=== PATIENT | male | born 1990 | race African-American/Black ===

== ENCOUNTER 2023-02-22 10:11 | Emergency (ER) | payer OTHER, SELFPAY ==
--- NOTE | ~2023-02-22 | XR_ITS ---
EXAMINATION: XR RIBS, LEFT CLINICAL INFORMATION: Pain. Trauma. COMPARISON: None available. TECHNIQUE: 3 views of the left ribs and one view of the chest were obtained. FINDINGS: Lungs are clear. No consolidation, pneumothorax, or pleural effusion. The cardiomediastinal silhouette and pulmonary vasculature are normal. Osseous structures are unremarkable. Ribs are intact. No fractures are identified. XR/XR ribs LT min 3V w CXR1V IMPRESSION: Unremarkable examination.
[2023-02-22 10:29] VITALS: BP 137/77; PULSE 67; RESP 18; TEMP 37.3; O2SAT 99; BMI 20.1
--- NOTE | 2023-02-22 10:43 | ED_ITS ---
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 Reports pain worse with movement and deep breathing. Denies LOC, abdominal pain, nausea/vomiting, CP/SOB Onset (ago): day(s) Related Data Previous Rx's Medication Instructions Recorded acetaminophen 500 mg tablet 500 mg PO Q6H PRN fever or pain 02/22/23 (Tylenol Extra Strength) #14 tabs cyclobenzaprine 5 mg tablet 5 mg PO Q8H PRN pain (scale score 02/22/23 7-10) 5 days #14 tabs lidocaine 5 % topical patch 1 patch topical DAILY PRN pain #30 02/22/23 (Lidoderm) ea naproxen 500 mg tablet 500 mg PO BID PRN pain 10 days #20 02/22/23 tabs Allergies Allergy/AdvReac Type Severity Reaction Status Date / Time tramadol [TRAMADOL] Allergy Intermediate HIVES Unverified 07/30/20 19:31 Review of Systems Review of Systems: Constitutional: No Fever, No Chills ENT/Mouth: No Ear Pain, No Nasal Congestion, No sore throat, No Rhinorrhea, No Swallowing Difficulty Cardiovascular: + Chest Pain, No SOB Respiratory: No Cough, No Sputum, No Wheezing Gastrointestinal: No Nausea, No Vomiting, No Diarrhea, No Constipation, No Abdominal pain Genitourinary: No Dysuria, No Urinary Frequency, No Hematuria, No Urinary Incontinence/retention, No Flank Pain Musculoskeletal: No joint pain, No Myalgias, No Joint Swelling Skin: No Skin Lesions, No rash Neuro: No Weakness, No Numbness Yes all other systems are reviewed and are negative Constitutional: Constitutional: Reports as per [facility] Past Medical History Attestation statement: The following information was validated with the patient. Social History Social History Advance Directives: No Advance Directives Information Provided: Yes Physical Exam ED Vital Signs: Vital Signs - 24 hr 02/22/23 10:29 Temperature 99.2 F Pulse Rate 67 Respiratory Rate 18 Blood Pressure 137/77 Pulse Oximetry 99 Oxygen Delivery Method Room Air BMI result Body Mass Index 20.1 Const General: cooperative, healthy appearing and no acute distress Orientation/consciousness: patient oriented x3 Limitations: no limitations HENMT Head: Yes normal to inspection and Yes atraumatic Ears: hearing grossly normal bilaterally General nose exam: Normal external nose present Face and sinus: Yes normal facial exam Eyes General: appearance normal, both eyes and all related structures EOM: EOMs intact bilaterally Neck Neck: Yes normal visual inspection and Yes no meningeal signs Chest Other: + left anterior lateral lower rib tenderness to palpation reproducing subjective complaint. No erythema/ecchymosis. No flail chest. No crepitus Chest palpation & inspection: normal inspection of the chest, no crepitus and tenderness Resp Effort & Inspection: normal respiratory effort and no respiratory distress Auscultation: clear to auscultation bilaterally Cardio Rate: regular rate Heart sounds: S1 normal heart sound present and S2 normal heart sound present GI Inspection: Yes normal to inspection Palpation (GI): Soft to palpation, nontender, no guarding and not rigid General: Yes no CVA tenderness Back/Spine/Pelvis Other: No midline thoracic/lumbar spinous tenderness/step-off or deformity Back: no CVA tenderness Skin Rashes: no rashes Wounds: no wounds Neuro General: patient oriented x3, tone normal and no meningeal signs Gait exam (Neuro): Normal gait present Extrem General: Yes normal to inspection Course Course Course Narrative: XR ribs LT min 3V w CXR1V IMPRESSION: Unremarkable examination. Results discussed with patient including worrisome signs and symptoms and strict return precautions, and when to return to the emergency department. They verbalized understanding and feel safe for discharge at this time. Medications Administered Discontinued Medications Generic Name Dose Route Start Last Admin Trade Name Freq PRN Reason Stop Dose Admin Ketorolac Tromethamine 30 mg 02/22/23 11:10 02/22/23 11:26 Ketorolac Tromethamine 30 Mg/Ml Vial IM 02/22/23 11:11 30 mg ONCE ONE Administration Lidocaine 1 patch 02/22/23 11:10 02/22/23 11:25 Lidocaine 4 % Patch Adh..Patch TRANSDERMA 02/22/23 11:11 1 patch ONCE ONE Administration Protocol Medical Decision Making Medical Decision Making MDM Narrative: 32-year-old male with no significant past medical history presenting to the ED complaining of left-sided rib pain s/p being kicked a few times in the ribs by autistic child at work. On exam vital signs stable, NAD, nontoxic appearing, left anterior lateral rib tenderness reproducible, abdomen soft/nontender. Concern for rib fracture versus contusion. Lower suspicion for intra-abdominal bleeding/splenic laceration Plan: Rib series Please refer to course for remaining clinical decision making, interpretation of labs/imaging results, and discussions with consultants and/or family members. Differential Diagnosis Differential Diagnoses: The differential diagnosis associated with the presentation includes As above Admission/Observation Consideration of admission/observation: Escalation of care including admission/observation considered Lab Data [facility] Lab Attestation statement: I reviewed the patient's lab results. Radiology Impression Discussion of test interpretation with radiology: I have reviewed the radi ologist's reading. External Record Review External record reviewed: Inpatient record, Office record, Outpatient record, Prior outpatient labs, Prior outpatient radiology, Primary care record and Outside ED record Discharge Plan Discharge Clinical Impression: Rib contusion Patient Disposition: Home, Self-Care Instructions: Rib Contusion (ED) Additional Instructions: Your x-ray does not show a fracture, you could have a small hairline fracture which was not appreciated Continue to take deep breaths or you could develop pneumonia Flexeril is a muscle relaxer, take at night as it makes you drowsy, do not drive, drink alcohol, or operate machinery while taking it Naproxen as an anti-inflammatory / pain medication, take with food Lidoderm patches are numbing patches, apply to painful area In addition take Tylenol at home If symptoms persist or worsen, pain becomes unbearable, you developed urinary retention or incontinence, or weakness return to the ED Prescriptions: New acetaminophen [Tylenol Extra Strength] 500 mg tablet 500 mg PO Q6H PRN (Reason: fever or pain) Qty: 14 0RF lidocaine [Lidoderm] 5 % adhesive patch,medicated 1 patch topical DAILY MDD remove after 12 hours PRN (Reason: pain) Qty: 30 0RF Rx Instructions: leave on most painful area for up to 12 hrs naproxen 500 mg tablet 500 mg PO BID PRN (Reason: pain) 10 Days Qty: 20 0RF cyclobenzaprine 5 mg tablet 5 mg PO Q8H PRN (Reason: pain (scale score 7-10)) 5 Days Qty: 14 0RF Referrals: Denny Yu MD [Primary Care Provider] - 1 week Stand Alone Forms: Work/School Release Interventions: ED Discharge Assessment Last Done: 02/22/23 12:47 Discharge Date/Time: 02/22/23 12:48
--- OUTSIDE RECORDS SUMMARY | 2023-02-22 11:02 | XMS_ITS | Continuity of Care Document ---
Author Name Unknown Organization [facility] Jose Luis lt Address [address] [place] [address]- Care Team Providers Care Slubber Machine Operator Name Role Phone Aimee CANNON, Denny Waters Primary Care Physician En[place] [facility] [place] Date(s): 05/26/20 - 06/25/20 [facility] Adult [address] [place] [address]- [place] States Allergies, Adverse Reactions, Alerts Substance Reaction Severity Status Seafood 1 Active Strawberries 2 Active Onions 3, 4 Active traMADol 5 Active 1hot flash, sweaty 2hives, vomiting 3itchy throat 4hot flash, sweaty 5syncope Immunizations Given and Recorded Vaccine Date Status Refusal Reason influenza virus vaccine, inactivated 1 08/22/19 Gi kylie Hepatitis A Adult Vaccine 2 12/06/18 Given tetanus/diphtheria/pertussis, acel(Tdap) 3 07/17/13 Recorded 1Result Comment: [facility] 58152-244-03 2Result Comment: [12/06/2018] [facility] [id number] 3Result Comment: [12/04/2017] [facility] Medications albuterol CFC free 90 mcg/inh inhalation aerosol Refills 0, Maintenance, 10/04/19 8:06:23 EST Start Date: 10/04/19 Status: Ordered amphetamine-dextroamphetamine 10 mg oral capsule, extended release TAKE 1 CAPSULE BY MOUTH EVERY MORNING Start Date: 10/04/19 Status: Ordered baclofen 10 mg oral tablet 10 mg, 1, tablet, By Mouth, 3 times a day, PRN, # 15 tablet, Refills 1, Tot. Refills 1, Maintenance, muscle spasm, 06/03/20 11:00:00 EDT, Route to Pharmacy Electronically, [facility]/pharmacy #[id number], 165.9, cm, 06/03/20 10:24:00 EDT, Height Start Date: 06/03/20 Status: Ordered epinephrine 0.3 mg injectable solution USE DIRECTED FOR ANAPHYLAXIS THEN CALL 911 Start Date: 10/04/19 Status: Ordered levocetirizine 5 mg oral tablet 0 Refills, Maintenance, 10/04/19 8:06:32 EST Start Date: 10/04/19 Status: Ordered Neuropsych referral Neuropsych referral, See Instructions, # 1 each, Refills 0, Tot. 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 FAX [phone] [facility], 04/04/19 8:... Start Date: 04/04/19 Status: Ordered Neuropsych referral Neuropsych referral, See Instructions, # 1 each, Refills 0, Tot. Refills 0, Maintenance, adult evaluate and treat, 04/02/19 9:22:48 EDT, Compound Start Date: 04/02/19 Status: Ordered Proventil HFA 90 mcg/inh inhalation aerosol with adapter 1, puffs, Inhalation, 4 times a day, PRN, # 8.5 Gm, Refills 5, Tot. Refills 5, Maintenance, 02/20/20 10:13:00 EDT, Aerosol, Route to Pharmacy Electronically, [id number], [facility]/pharmacy #[id number], 165.9, cm, 12/24/19 10:56:00 EST, H... Start Date: 02/20/20 Status: Ordered Problem List Condition Effective Dates Status Health Status Inform ant Allergic rhinitis(Confirmed) Active Asthma(Confirmed) Active Conversion disorder(Confirmed) Active Social History Social History Type Response Smoking Status Former smoker; Other : quit in 2012; entered on: 12/04/17 Sex
--- OUTSIDE RECORDS SUMMARY | 2023-02-22 11:02 | XMS_ITS | Continuity of Care Document ---
Author Name Unknown Organization [facility] Jose Luis Address [address] [place] [address]- Care Team Providers Care Chemist Water Purification Name Role Phone Denny Yu MD Primary Care Physician [phone] Encounter [facility] Date(s): 01/29/20 - 02/05/20 [facility] Adult [address] [place] [address] Encounter Diagnosis Fever(Discharge Diagnosis) - 01/29/20 Attending Physician: Joseph JUDD, Yvette Campuzano Referring Physician: Denny Yu MD Allergies, Adverse Reactions, Alerts Substance Reaction Severity Status Seafood 1 Active Strawberries 2 Active Onions 3, 4 Active traMADol 5 Active 1hot flash, sweaty 2hives, vomiting 3itchy throat 4hot flash, sweaty 5syncope Immunizations Given and Recorded Vaccine Date Status Refusal Reason influenza virus vaccine, inactivated 1 08/22/19 Gi kylie Hepatitis A Adult Vaccine 2 12/06/18 Given tetanus/diphtheria/pertussis, acel(Tdap) 3 07/17/13 Recorded 1Result Comment: [facility][NOTE 3] [id number] 2Result Comment: [12/06/2018] [facility][NOTE 3] [id number] 3Result Comment: [12/04/2017] [facility] Medications albuterol CFC free 90 mcg/inh inhalation aerosol Refills 0, Maintenance, 10/04/19 8:06:23 EST Start Date: 10/04/19 Status: Ordered amphetamine-dextroamphetamine 10 mg oral capsule, extended release TAKE 1 CAPSULE BY MOUTH EVERY MORNING Start Date: 10/04/19 Status: Ordered baclofen 10 mg oral tablet 10 mg, 1, tablet, By Mouth, 3 times a day, PRN, # 15 tablet, Refills 0, Tot. Refills 0, Maintenance, muscle spasm, 05/29/18 18:23:10 EDT, Route to Pharmacy Electronically, [id number], [facility]/pharmacy #[id number] Start Date: 05/29/18 Status: Ordered epinephrine 0.3 mg injectable solution [...] child, worsening over past few years. FAX [phone] [facility], 04/04/19 8:... Start Date: 04/04/19 Status: Ordered Neuropsych referral Neuropsych referral, See Instructions, # 1 each, Refills 0, Tot. Refills 0, Maintenance, adult evaluate and treat, 04/02/19 9:22:48 EDT, Compound Start Date: 04/02/19 Status: Ordered Problem List Condition Effective Dates Status Health Status Inform ant Allergic rhinitis(Confirmed) Active Asthma(Confirmed) Active Conversion disorder(Confirmed) Active Diagnosis Diagnosis Type Effective Dates Health Status [facility] Informant Fever Discharge Diagnosis 01/29/20 Social History Social History Type Response Smoking Status Former smoker; Other : quit in 2012; entered on: 12/04/17 Sex
--- OUTSIDE RECORDS SUMMARY | 2023-02-22 11:02 | XMS_ITS | Continuity of Care Document ---
Author Name Unknown Organization [facility] Jose Luis lt Address [address] [place] [address]- Care Team Providers Care Trimming Operator Name Role Phone Aimee CANNON, Denny Waters Primary Care Physician [phone] [place] [facility] [place] [facility] [place]03[place] 07/03/20 [facility] Adult [address] [place] [address]- [facility] Attending Physician: Admtr, Shannen Admitting Physician: AdmtrShannen Referring Physician: Admtr, Ar8 Allergies, Adverse Reactions, Alerts Substance Reaction Severity Status Seafood 1 Active Strawberries 2 Active Onions 3, 4 Active traMADol 5 Active 1hot flash, sweaty 2hives, vomiting 3itchy throat 4hot flash, sweaty 5syncope Immunizations Given and Recorded Vaccine Date Status Refusal Reason influenza virus vaccine, inactivated 1 08/22/19 Gi kylie Hepatitis A Adult Vaccine 2 12/06/18 Given tetanus/diphtheria/pertussis, acel(Tdap) 3 07/17/13 Recorded 1Result Comment: [facility] [id number] 2Result Comment: [12/06/2018] [facility] [id number] 3Result Comment: [12/04/2017] [facility] Medications albuterol CFC free 90 mcg/inh [...] 06/03/20 11:00:00 EDT, Route to Pharmacy Electronically, [facility]/pharmacy #[id number], 165.9, cm, 06/03/20 10:24:00 EDT, Height [...] child, worsening over past few years. FAX [phone] [facility], 04/04/19 8:... Start Date: 04/04/19 [...] 10:13:00 EDT, Aerosol, Route to Pharmacy Electronically, [id number], [facility]/pharmacy #[id number], 165.9, cm, 12/24/19 10:56:00 EST, H... Start Date: 02/20/20 Status: Ordered Problem List Condition Effective Dates Status Health Status Inform ant Allergic rhinitis(Confirmed) Active Asthma(Confirmed) Active Conversion disorder(Confirmed) Active Social History Social History Type Response Smoking Status Former smoker; Other : quit in 2012; entered on: 12/04/17 Sex
--- OUTSIDE RECORDS SUMMARY | 2023-02-22 11:02 | XMS_ITS | Continuity of Care Document ---
Author Name Unknown Organization [facility] ter Address [address] [place] [address]- Care Team Providers Care Electric Motor Controls Assembler Name Role Phone Denny Yu MD Primary Care Physician [phone] [id number] Date[facility] - 01/01/[address] [address]- [facility] Attending Physician: Denny Yu MD Allergies, Adverse Reactions, [...] tetanus/diphtheria/pertussis, acel(Tdap) 3 07/17/13 Recorded 1Result Comment: [facility] [id number] 2Result Comment: [12/06/2018] [facility] [id number] 3Result Comment: [12/04/2017] [facility] Medications albuterol CFC free 90 mcg/inh inhalation [...] 05/29/18 18:23:10 EDT, Route to Pharmacy Electronically, [id number], [facility]/pharmacy #[id number] Start Date: 05/29/18 Status: Ordered epinephrine [...] child, worsening over past few years. FAX [phone] [facility], 04/04/19 8:... Start Date: 04/04/19 Status: [...]
--- OUTSIDE RECORDS SUMMARY | 2023-02-22 11:02 | XMS_ITS | Continuity of Care Document ---
Author Name Unknown Organization [facility] Jose Luis Address [address] [place] [address]- Care Team Providers Care Program Clinician Name Role Phone Aimee CANNON, Denny Waters Primary Care Physician [phone] Encounter [facility] Date(s): 03/25/22 - 04/24/22 [facility] Adult [address] [place] [address]- Attending Physician: Admtr, Ar8 Admitting Physician: Admtr, Ar8 Referring Physician: Admtr, Ar8 Allergies, Adverse Reactions, Alerts Substance Reaction Severity Status Seafood 1 Active Strawberries 2 Active Onions 3, 4 Active traMADol 5 Active 1hot flash, sweaty 2hives, vomiting 3itchy throat 4hot flash, sweaty 5syncope Immunizations Given and Recorded Vaccine Date Status Refusal Reason SARS-CoV-2 mRNA ([id number]-wuqj-euntc) vax 01/08/22 Recorded SARS-CoV-2 (COVID-19) mRNA BNT-162b2 vac 05/26/21 Recorded SARS-CoV-2 (COVID-19) mRNA BNT-162b2 vac 05/05/21 Recorded influenza virus vaccine, inactivated 1 08/22/19 Gi kylie influenza virus vaccine, inactivated 11/20/18 Ivan rded influenza virus vaccine, inactivated 07/24/14 Ivan rded influenza virus vaccine, inactivated 10/19/12 Ivan rded Hepatitis A Adult Vaccine 2 12/06/18 Given tetanus/diphtheria/pertussis, acel(Tdap) 07/24/14 Recorded tetanus/diphtheria/pertussis, acel(Tdap) 3 07/17/13 Recorded Meningococcal Conjugate Vaccine 10/25/05 Recorded 1Result Comment: [facility] [id number] 2Result Comment: [12/06/2018] [facility] [id number] 3Result Comment: [12/04/2017] [facility] Medications amphetamine-dextroamphetamine 10 mg oral capsule, extended release TAKE 1 CAPSULE BY MOUTH EVERY MORNING Start Date: 10/04/19 Status: Ordered baclofen 10 mg oral tablet 1, tablet, By Mouth, 3 times a day, PRN, # 15 tablet, Refills 1, Tot. Refills 0, Maintenance, NEEDED FOR MUSCLE SPASM, 04/01/21 12:29:00 EDT, Route to Pharmacy Electronically, [id number], 165.9, cm, 06/03/20 10:24:00 EDT, Height Start Date: 04/01/21 Status: Ordered epinephrine 0.3 mg injectable solution USE DIRECTED FOR ANAPHYLAXIS THEN CALL 911 Start Date: 10/04/19 Status: Ordered levocetirizine 5 mg oral tablet 0 Refills, Maintenance, 10/04/19 8:06:32 EST Start Date: 10/04/19 Status: Ordered Neuropsych referral Neuropsych referral, See Instructions, # 1 each, Refills 0, Tot. Refills 0, Maintenance, adult evaluate and treat, 04/02/19 9:22:48 EDT, Compound Start Date: 04/02/19 Status: Ordered Neuropsych referral Neuropsych referral, See Instructions, # 1 each, Refills 0, Tot. 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 FAX [phone] [facility], 04/04/19 8:... Start Date: 04/04/19 Status: Ordered ProAir HFA 90 mcg/inh inhalation aerosol 1 puffs, Inhalation, 4 times a day, PRN NEEDED FOR WHEEZING, # 18 Unknown, 5 Refills, Maintenance, 04/01/21 12:29:00 EDT, [id number], 25, INHALE 1 PUFF BY MOUTH 4 TIMES A DAY NEEDED FOR WHEEZING, 165.9, cm, 06/03/20 10:24:00 EDT, Height Start Date: 04/01/21 Status: Ordered Problem List Condition Effective Dates Status Health Status Inform ant Allergic rhinitis(Confirmed) Active Asthma(Confirmed) Active Conversion disorder(Confirmed) Active Social History Social History Type Response Smoking Status Former smoker; Other : quit in 2012; entered on: 12/04/17 Sex
--- OUTSIDE RECORDS SUMMARY | 2023-02-22 11:02 | XMS_ITS | Continuity of Care Document ---
Author Name Unknown Organization [facility] Jose Luis lt Address [address] [place] [address]- Care Team Providers Care Human Resources Project Manager Name Role Phone Aimee CANNON, Denny Waters Primary Care Physician [phone] Encounter [facility] [place] Date(s): 03/15/22 - 04/14/22 [facility] Adult [address] [place] [address]- Allergies, Adverse Reactions, Alerts Substance Reaction Severity Status Seafood 1 Active Strawberries 2 Active Onions 3, 4 Active traMADol 5 Active 1hot flash, sweaty 2hives, vomiting 3itchy throat 4hot flash, sweaty 5syncope Immunizations Given and Recorded Vaccine Date Status Refusal Reason SARS-CoV-2 mRNA (rjfxldd-aawv-rdhar) vax 01/08/22 Recorded SARS-CoV-2 (COVID-19) mRNA BNT-162b2 [...] Meningococcal Conjugate Vaccine 10/25/05 Recorded 1Result Comment: [facility] [phone] 2Result Comment: [12/06/2018] [facility] [id number] 3Result Comment: [12/04/2017] [facility] Medications amphetamine-dextroamphetamine 10 mg oral capsule, extended release TAKE 1 CAPSULE BY MOUTH EVERY MORNING Start Date: 10/04/19 Status: Ordered baclofen 10 mg oral tablet 1, tablet, By Mouth, 3 times a day, PRN, # 15 tablet, Refills 1, Tot. Refills 0, Maintenance, NEEDED FOR MUSCLE SPASM, 04/01/21 12:29:00 EDT, Route to Pharmacy Electronically, [id number], 165.9, cm, 06/03/20 10:24:00 EDT, Height Start [...] child, worsening over past few years. FAX [phone] [facility], 04/04/19 8:... Start Date: 04/04/19 Status: Ordered ProAir HFA 90 mcg/inh inhalation aerosol 1 puffs, Inhalation, 4 times a day, PRN NEEDED FOR WHEEZING, # 18 Unknown, 5 Refills, Maintenance, 04/01/21 12:29:00 EDT, [facility] STORE [address], 25, INHALE 1 PUFF BY MOUTH 4 [...]
--- OUTSIDE RECORDS SUMMARY | 2023-02-22 11:02 | XMS_ITS | Continuity of Care Document ---
Author Name Unknown Organization [facility] Address [address] [place] [address]- Care Team Providers Care Method Consultant Name Role Phone Aimee CANNON, Denny Waters Primary Care Physician [phone] Encounter [facility] Date(s): 11/18/20 - 12/18/20 [facility] [address] [place] [address]- Allergies, Adverse Reactions, Alerts Substance Reaction Severity Status Seafood 1 Active Strawberries 2 Active Onions 3, 4 Active traMADol 5 Active 1hot flash, sweaty 2hives, vomiting 3itchy throat 4hot flash, sweaty 5syncope Immunizations Given and Recorded Vaccine Date Status Refusal Reason influenza virus vaccine, inactivated 1 08/22/19 Gi kylie Hepatitis A Adult Vaccine 2 12/06/18 Given tetanus/diphtheria/pertussis, acel(Tdap) 3 07/17/13 Recorded 1Result Comment: [facility] 33418-579-47 2Result Comment: [12/06/2018] [facility] 62604-669-26 3Result Comment: [12/04/2017] [facility] Medications albuterol CFC free 90 mcg/inh inhalation [...] 06/03/20 11:00:00 EDT, Route to Pharmacy Electronically, [facility]/pharmacy #2339, 165.9, cm, 06/03/20 10:24:00 EDT, [...] child, worsening over past few years. FAX [phone] [facility], 04/04/19 8:... Start Date: 04/04/19 Status: Ordered Proventil HFA 90 mcg/inh inhalation aerosol with adapter 1, puffs, Inhalation, 4 times a day, PRN, # 8.5 Gm, Refills 5, Tot. Refills 5, Maintenance, 02/20/20 10:13:00 EDT, Aerosol, Route to Pharmacy Electronically, [id number], [facility]/pharmacy #2339, 165.9, cm, 12/24/19 10:56:00 EST, H... Start Date: 02/20/20 Status: Ordered Problem List Condition Effective Dates Status Health Status Inform ant Allergic rhinitis(Confirmed) Active Asthma(Confirmed) Active Conversion disorder(Confirmed) Active Social History Social History Type Response Smoking Status Former smoker; Other : quit in 2012; entered on: 12/04/17 Sex
--- OUTSIDE RECORDS SUMMARY | 2023-02-22 11:02 | XMS_ITS | Continuity of Care Document ---
Author Name Unknown Organization [facility] Jose Luis lt Address [address] [place] [address]- Care Team Providers Care Corporate Accounting Manager Name Role Phone Denny Yu MD Primary Care Physician En[place] [facility] Date(s): 06/03/20 - 06/10/20 [facility] Adult [address] [place] [address]- [place] Attending Physician: Denny Yu MD Allergies, Adverse [...] tetanus/diphtheria/pertussis, acel(Tdap) 3 07/17/13 Recorded 1Result Comment: [facility] 13072-375-51 2Result Comment: [12/06/2018] [facility] 44703-576-73 3Result Comment: [12/04/2017] [facility] Medications albuterol CFC free 90 mcg/inh [...] child, worsening over past few years. FAX [phone] [facility], 04/04/19 8:... Start Date: 04/04/19 Status: [...] 10:13:00 EDT, Aerosol, Route to Pharmacy Electronically, [id number], [facility], 165.9, cm, 12/24/19 10:56:00 EST, H... Start Date: 02/20/20 Status: Ordered Problem List Condition Effective Dates Status Health Status Inform ant Allergic rhinitis(Confirmed) Active Asthma(Confirmed) Active Conversion disorder(Confirmed) Active Vital Signs Most recent to oldest [Reference Range]: 1 Height 165.9 cm (06/03/20 10:24 AM) Social History Social History Type Response Smoking Status Former smoker; Other : quit in 2012; entered on: 12/04/17 Sex
--- OUTSIDE RECORDS SUMMARY | 2023-02-22 11:02 | XMS_ITS | Continuity of Care Document ---
Author Name Unknown Organization [facility] Jose Luis Address [address] [place] [address]- Care Team Providers Care Engraver Apprentice Decorative Name Role Phone Denny Yu MD Primary Care Physician [place] [facility] Date[place] 03/22/22 - 04/24/22 [facility] Adult [address] [place] [address]- Attending Physician: Denny Yu MD Allergies, Adverse Reactions, Alerts Substance Reaction Severity Status Seafood 1 Active Strawberries 2 Active Onions 3, 4 Active traMADol 5 Active 1hot flash, sweaty 2hives, vomiting 3itchy throat 4hot flash, sweaty 5syncope Immunizations Given and Recorded Vaccine Date Status Refusal Reason SARS-CoV-2 mRNA (aomfaps-xaxj-edegc) vax 01/08/22 Recorded SARS-CoV-2 (COVID-19) mRNA BNT-162b2 [...] Meningococcal Conjugate Vaccine 10/25/05 Recorded 1Result Comment: [facility] 41766-287-28 2Result Comment: [12/06/2018] [facility] 79593-284-41 3Result Comment: [12/04/2017] [facility] Medications amphetamine-dextroamphetamine 10 mg oral capsule, extended release TAKE 1 CAPSULE BY MOUTH EVERY MORNING Start Date: 10/04/19 Status: Ordered baclofen 10 mg oral tablet 1, tablet, By Mouth, 3 times a day, PRN, # 15 tablet, Refills 1, Tot. Refills 0, Maintenance, NEEDED FOR MUSCLE SPASM, 04/01/21 12:29:00 EDT, Route to Pharmacy Electronically, [facility], 165.9, cm, 06/03/20 10:24:00 EDT, Height Start [...] child, worsening over past few years. FAX [phone] [facility], 04/04/19 8:... Start Date: 04/04/19 Status: Ordered ProAir HFA 90 mcg/inh inhalation aerosol 1 puffs, Inhalation, 4 times a day, PRN NEEDED FOR WHEEZING, # 18 Unknown, 5 Refills, Maintenance, 04/01/21 12:29:00 EDT, [facility], 25, INHALE 1 PUFF BY MOUTH 4 [...]
--- OUTSIDE RECORDS SUMMARY | 2023-02-22 11:02 | XMS_ITS | Continuity of Care Document ---
Author Name Unknown Organization [facility] Jose Luis Address [address] [place] [address]- Care Team Providers Care Cryptographic Machine Operator Name Role Phone Denny Yu MD Primary Care Physician [phone] Encounter [facility] Date(s): 02/17/20 - 03/18/20 [facility] Adult [address] [place] [address]- [facility] Attending Physician: Denny Yu MD Allergies, Adverse [...] tetanus/diphtheria/pertussis, acel(Tdap) 3 07/17/13 Recorded 1Result Comment: [facility] 15968-630-30 2Result Comment: [12/06/2018] [facility] 92599-476-29 3Result Comment: [12/04/2017] [facility] Medications albuterol CFC free 90 [...] 05/29/18 18:23:10 EDT, Route to Pharmacy Electronically, [id number], [facility]/pharmacy #2339 Start Date: 05/29/18 Status: [...] child, worsening over past few years. FAX [phone] [facility], 04/04/19 8:... [...] 10:13:00 EDT, Aerosol, Route to Pharmacy Electronically, [id number], [facility], 165.9, cm, 12/24/19 10:56:00 EST, H... Start Date: 02/20/20 Status: Ordered Problem List Condition Effective Dates Status Health Status Inform ant Allergic rhinitis(Confirmed) Active Asthma(Confirmed) Active Conversion disorder(Confirmed) Active Social History Social History Type Response Smoking Status Former smoker; Other : quit in 2012; entered on: 12/04/17 Sex
--- OUTSIDE RECORDS SUMMARY | 2023-02-22 11:02 | XMS_ITS | Continuity of Care Document ---
Author Name Unknown Organization [facility] Jose Luis lt Address [address] [place] [address]- Care Team Providers Care Honing Machine Operator Name Role Phone Aimee CANNON, Denny Waters Primary Care Physician [phone] Encounter [facility] Date(s): 01/29/20 - 02/08/20 [facility] Adult [address] [place] [address]- [facility] Attending Physician: Admtr, Ar8 Admitting Physician: Admtr, [...] tetanus/diphtheria/pertussis, acel(Tdap) 3 07/17/13 Recorded 1Result Comment: [facility] 92588-690-77 2Result Comment: [12/06/2018] [facility] 85347-900-41 3Result Comment: [12/04/2017] [facility] Medications albuterol CFC free 90 mcg/inh [...] 05/29/18 18:23:10 EDT, Route to Pharmacy Electronically, [id number], [facility]/pharmacy #2339 Start Date: 05/29/18 Status: [...] child, worsening over past few years. FAX [phone] [facility], 04/04/19 8:... Start Date: 04/04/19 Status: Ordered [...]
--- OUTSIDE RECORDS SUMMARY | 2023-02-22 11:02 | XMS_ITS | Continuity of Care Document ---
Author Name Unknown Organization [facility] Jose Luis lt Address [address] [place] [address]- Care Team Providers Care Padder Cushion Name Role Phone Aimee CANNON, Denny Waters Primary Care Physician Encounter [facility] Date(s): 05/26/20 - 06/25/20 [facility] Adult [address] [place] [address]- [place] Allergies, Adverse Reactions, Alerts Substance Reaction [...] tetanus/diphtheria/pertussis, acel(Tdap) 3 07/17/13 Recorded 1Result Comment: [facility] 80563-489-31 2Result Comment: [12/06/2018] [facility] 46182-154-79 3Result Comment: [12/04/2017] [facility] Medications albuterol CFC free 90 mcg/inh [...] 06/03/20 11:00:00 EDT, Route to Pharmacy Electronically, [facility]/pharmacy #2339, 165.9, cm, 07/22/20 10:24:00 EDT, Height Start Date: 06/03/20 Status: [...] child, worsening over past few years. FAX [phone] [facility], 04/04/19 8:... Start Date: 04/04/19 Status: [...] 10:13:00 EDT, Aerosol, Route to Pharmacy Electronically, [id number], [facility]/pharmacy #2339, 165.9, cm, 12/24/19 10:56:00 EST, H... Start Date: 02/20/20 Status: Ordered Problem List Condition Effective Dates Status Health Status Inform ant Allergic rhinitis(Confirmed) Active Asthma(Confirmed) Active Conversion disorder(Confirmed) Active Social History Social History Type Response Smoking Status Former smoker; Other : quit in 2012; entered on: 12/04/17 Sex
--- OUTSIDE RECORDS SUMMARY | 2023-02-22 11:02 | XMS_ITS | Continuity of Care Document ---
Author Name Unknown Organization [facility] Jose Luis lt Address [address] [place] [address]- Care Team Providers Care Sld Inclusion Teacher Name Role Phone Aimee CANNON, Denny Waters Primary Care Physician [phone] En[place] [facility] Date(s): 06/03/20 - 07/03/20 [facility] Adult [address] [place] [address]- [place] Allergies, Adverse Reactions, Alerts Substance Reaction [...] acel(Tdap) 3 07/17/13 Recorded 1Result Comment: [facility] 55200-472-21 2Result Comment: [12/06/2018] [facility] 31746-825-97 3Result Comment: [12/04/2017] [facility] Medications albuterol CFC free 90 mcg/inh [...] 06/03/20 11:00:00 EDT, Route to Pharmacy Electronically, [facility]/pharmacy #2339, 165.9, cm, 07/22/20 10:24:00 EDT, Height [...] child, worsening over past few years. FAX [phone] [facility], 04/04/19 8:... Start Date: 04/04/19 Status: [...] 10:13:00 EDT, Aerosol, Route to Pharmacy Electronically, [id number], [facility]/pharmacy #2339, 165.9, cm, 12/24/19 10:56:00 EST, H... Start Date: 02/20/20 Status: Ordered Problem List Condition Effective Dates Status Health Status Inform ant Allergic rhinitis(Confirmed) Active Asthma(Confirmed) Active Conversion disorder(Confirmed) Active Social History Social History Type Response Smoking Status Former smoker; Other : quit in 2012; entered on: 12/04/17 Sex
--- OUTSIDE RECORDS SUMMARY | 2023-02-22 11:02 | XMS_ITS | Continuity of Care Document ---
Author Name Unknown Organization [facility] Jose Luis Address [address] [place] [address]- Care Team Providers Care Integrated Circuits Inspector Name Role Phone Denny Yu MD Primary Care Physician En[place] [facility] Date(s): 04/03/20 - 04/10/20 [facility] Adult [address] [place] [address]- [facility] Attending Physician: Denny Yu MD [...] tetanus/diphtheria/pertussis, acel(Tdap) 3 07/17/13 Recorded 1Result Comment: [facility] 41051-381-59 2Result Comment: [12/06/2018] [facility] 17982-919-09 3Result Comment: [12/04/2017] [facility] Medications albuterol CFC free 90 [...] 05/29/18 18:23:10 EDT, Route to Pharmacy Electronically, [id number], [facility] Start Date: 05/29/18 Status: Ordered epinephrine [...] child, worsening over past few years. FAX [phone] [facility], 04/04/19 8:... Start Date: 04/04/19 [...] 10:13:00 EDT, Aerosol, Route to Pharmacy Electronically, [id number], [facility], 165.9, cm, 12/24/19 10:56:00 EST, H... Start Date: 02/20/20 Status: Ordered Problem List Condition Effective Dates Status Health Status Inform ant Allergic rhinitis(Confirmed) Active Asthma(Confirmed) Active Conversion disorder(Confirmed) Active Vital Signs Most recent to oldest [Reference Range]: 1 Height 165.9 cm (04/03/20 9:22 AM) Weight 55.0 kg (04/03/20 9:22 AM) Oxygen Saturation [94-100 %] 98 % (04/03/20 9:22 AM) Pulse Rate [55-90 bpm] 73 bpm (04/03/20 9:22 AM) Body Mass Index [18.5-24.99] 19.98 (04/03/20 9:22 AM) Blood Pressure [90-138/55-84 mm Hg] 110/ 70mm Hg (04/03/20 9:22 AM) Temperature [96.8-100.4 DegF] 98.5 DegF (04/03/20 9:22 AM) Mode of Delivery (Oxygen) Room air (04/03/20 9:22 AM) Blood pressure sites Arm, right (04/03/20 9:22 AM) Temperature Route Oral (04/03/20 9:22 AM) Weight Obtained Via Standing scale (04/03/20 9:22 AM) Social History Social History Type Response Smoking Status Former smoker; Other : quit in 2012; entered on: 12/04/17 Sex
--- OUTSIDE RECORDS SUMMARY | 2023-02-22 11:02 | XMS_ITS | Continuity of Care Document ---
Author Name Unknown Organization [facility] Jose Luis lt Address [address] [place] [address]- Care Team Providers Care Scroll Assembler Name Role Phone Aimee CANNON, Denny Waters Primary Care Physician [facility]counter [facility] Date(s): 06/02/20 - 07/02/20 [facility] Adult [address] [place] [address]- [place] Allergies, Adverse Reactions, Alerts Substance Reaction [...] 07/17/13 Recorded 1Result Comment: [facility] 80358-837-88 2Result Comment: [12/06/2018] [facility] 65072-358-15 3Result Comment: [12/04/2017] [facility] Medications albuterol CFC free 90 mcg/inh [...] 06/03/20 11:00:00 EDT, Route to Pharmacy Electronically, [facility]/pharmacy #2339, 165.9, cm, 06/03/20 10:24:00 EDT, [...] child, worsening over past few years. FAX [phone] [facility], 04/04/19 [...] 10:13:00 EDT, Aerosol, Route to Pharmacy Electronically, [id number], [facility]/pharmacy #2339, 165.9, cm, 12/24/19 10:56:00 EST, H... Start Date: 02/20/20 Status: Ordered Problem List Condition Effective Dates Status Health Status Inform ant Allergic rhinitis(Confirmed) Active Asthma(Confirmed) Active Conversion disorder(Confirmed) Active Social History Social History Type Response Smoking Status Former smoker; Other : quit in 2012; entered on: 12/04/17 Sex
--- OUTSIDE RECORDS SUMMARY | 2023-02-22 11:02 | XMS_ITS | Continuity of Care Document ---
Author Name Unknown Organization [facility] Jose Luis lt Address [address] [place] [address]- Care Team Providers Care Hot Patcher Name Role Phone Aimee CANNON, Denny Waters Primary Care Physician Encounter [facility] Date(s): 03/22/22 - 04/21/22 [facility] Adult [address] [place] [address]- Allergies, Adverse Reactions, Alerts Substance Reaction Severity Status Seafood 1 Active Strawberries 2 Active Onions 3, 4 Active traMADol 5 Active 1hot flash, sweaty 2hives, vomiting 3itchy throat 4hot flash, sweaty 5syncope Immunizations Given and Recorded Vaccine Date Status Refusal Reason SARS-CoV-2 mRNA (nudklis-hyxr-sijwb) vax 01/08/22 Recorded SARS-CoV-2 (COVID-19) mRNA BNT-162b2 [...] Meningococcal Conjugate Vaccine 10/25/05 Recorded 1Result Comment: [facility] 26166-081-15 2Result Comment: [12/06/2018] [facility] 30796-031-75 3Result Comment: [12/04/2017] [facility] Medications amphetamine-dextroamphetamine 10 mg oral capsule, extended release TAKE 1 CAPSULE BY MOUTH EVERY MORNING Start Date: 10/04/19 Status: Ordered baclofen 10 mg oral tablet 1, tablet, By Mouth, 3 times a day, PRN, # 15 tablet, Refills 1, Tot. Refills 0, Maintenance, NEEDED FOR MUSCLE SPASM, 04/01/21 12:29:00 EDT, Route to Pharmacy Electronically, [facility], 165.9, cm, 06/03/20 10:24:00 EDT, Height Start [...] child, worsening over past few years. FAX [phone] [facility], 04/04/19 8:... Start Date: 04/04/19 Status: Ordered ProAir HFA 90 mcg/inh inhalation aerosol 1 puffs, Inhalation, 4 times a day, PRN NEEDED FOR WHEEZING, # 18 Unknown, 5 Refills, Maintenance, 04/01/21 12:29:00 EDT, [facility] [address], 25, INHALE 1 PUFF BY MOUTH 4 [...]
--- OUTSIDE RECORDS SUMMARY | 2023-02-22 11:02 | XMS_ITS | Continuity of Care Document ---
Author Name Unknown Organization [facility] Jose Luis Address [address] [place] [address]- Care Team Providers Care Shop Coordinator Name Role Phone Aimee CANNON, Denny Waters Primary Care Physician Encounter [facility] Date(s): 04/06/21 - 05/06/21 [facility] Adult [address] [place] [address]- Attending Physician: Admtr, Ar8 Admitting Physician: Admtr, [...] tetanus/diphtheria/pertussis, acel(Tdap) 3 07/17/13 Recorded 1Result Comment: [facility] 29709-876-07 2Result Comment: [12/06/2018] [facility] 50227-199-30 3Result Comment: [12/04/2017] [facility] Medications amphetamine-dextroamphetamine 10 mg oral capsule, extended release TAKE 1 CAPSULE BY MOUTH EVERY MORNING Start Date: 10/04/19 Status: Ordered baclofen 10 mg oral tablet 1, tablet, By Mouth, 3 times a day, PRN, # 15 tablet, Refills 1, Tot. Refills 0, Maintenance, NEEDED FOR MUSCLE SPASM, 04/01/21 12:29:00 EDT, Route to Pharmacy Electronically, [facility], 165.9, cm, 06/03/20 10:24:00 EDT, Height Start [...] child, worsening over past few years. FAX [phone] [facility], 04/04/19 8:... Start Date: 04/04/19 Status: Ordered ProAir HFA 90 mcg/inh inhalation aerosol 1 puffs, Inhalation, 4 times a day, PRN NEEDED FOR WHEEZING, # 18 Unknown, 5 Refills, Maintenance, 04/01/21 12:29:00 EDT, [facility], 25, INHALE 1 PUFF BY MOUTH 4 [...]
--- OUTSIDE RECORDS SUMMARY | 2023-02-22 11:02 | XMS_ITS | Continuity of Care Document ---
Author Name Unknown Organization [facility] Jose Luis Address [address] [place] [address]- Care Team Providers Care Disability Examiner Name Role Phone Denny Yu MD Primary Care Physician En[place] [facility] Date(s): 12/24/19 - 12/31/19 [facility] Adult [address] [place] [address]- [facility] Attending Physician: Denny Yu MD Allergies, [...] tetanus/diphtheria/pertussis, acel(Tdap) 3 07/17/13 Recorded 1Result Comment: [facility] 69110-990-99 2Result Comment: [12/06/2018] [facility] 61508-944-37 3Result Comment: [12/04/2017] [facility] Medications albuterol CFC free 90 mcg/inh [...] 05/29/18 18:23:10 EDT, Route to Pharmacy Electronically, [id number], [facility]/pharmacy #2339 Start Date: 05/29/18 Status: Ordered epinephrine [...] child, worsening over past few years. FAX [phone] [facility], 04/04/19 8:... Start Date: 04/04/19 Status: [...] oldest [Reference Range]: 1 Height 165.9 cm (12/24/19 10:56 AM) Weight 54 kg (12/24/19 10:56 AM) Oxygen Saturation [94-100 %] 97 % (12/24/19 10:56 AM) Pulse Rate [55-90 bpm] 89 bpm (12/24/19 10:56 AM) Body Mass Index [18.5-24.99] 19.62 (12/24/19 10:56 AM) Blood Pressure [90-138/55-84 mm Hg] 110/ 60mm Hg (12/24/19 10:56 AM) Temperature [96.8-100.4 DegF] 98.2 DegF (12/24/19 10:56 AM) Mode of Delivery (Oxygen) Room air (12/24/19 10:56 AM) Blood pressure sites Arm, left (12/24/19 10:56 AM) Temperature Route Oral (12/24/19 10:56 AM) Weight Obtained Via Standing scale (12/24/19 10:56 AM) Social History Social History Type Response Smoking Status Former smoker; Other : quit in 2012; entered on: 12/04/17 Sex
--- OUTSIDE RECORDS SUMMARY | 2023-02-22 11:02 | XMS_ITS | Continuity of Care Document ---
Author Name Unknown Organization [facility] Jose Luis Address [address] [place] [address]- Care Team Providers Care Web Systems Developer Name Role Phone Denny Yu MD Primary Care Physician [place] [facility] Date(s): 02/19/20 - 02/26/20 [facility] Adult [address] [place] [address]- [facility] Attending Physician: Denny Yu MD Allergies, Adverse [...] Recorded 1Result Comment: [facility] 49198-371-19 2Result Comment: [12/06/2018] [facility] 45229-511-18 3Result Comment: [12/04/2017] [facility] Medications albuterol CFC free 90 mcg/inh [...] 05/29/18 18:23:10 EDT, Route to Pharmacy Electronically, [id number], [facility]/pharmacy #2339 Start Date: 05/29/18 Status: Ordered [...] child, worsening over past few years. FAX [phone] [facility], 04/04/19 8:... Start Date: 04/04/19 Status: Ordered [...] 10:13:00 EDT, Aerosol, Route to Pharmacy Electronically, [id number], [facility], 165.9, cm, 12/24/19 10:56:00 EST, H... Start Date: 02/20/20 Status: Ordered Problem List Condition Effective Dates Status Health Status Inform ant Allergic rhinitis(Confirmed) Active Asthma(Confirmed) Active Conversion disorder(Confirmed) Active Social History Social History Type Response Smoking Status Former smoker; Other : quit in 2012; entered on: 12/04/17 Sex
--- OUTSIDE RECORDS SUMMARY | 2023-02-22 11:02 | XMS_ITS | Continuity of Care Document ---
Author Name Unknown Organization [facility] ter Address [address] [place] [id number]- Care Team Providers Care Household Worker Name Role Phone Aimee CANNON, Denny Waters Primary Care Physician Encounter [facility] ACCT R [id number] Date(s): 01/01/20 - 01/01/[address] [address]- [facility] Attending Physician: Ashley Mejia Allergies, Adverse Reactions, Alerts Substance Reaction Severity Status Seafood 1 Active Strawberries 2 Active Onions 3, 4 Active traMADol 5 Active 1hot flash, sweaty 2hives, vomiting 3itchy throat 4hot flash, sweaty 5syncope Immunizations Given and Recorded Vaccine Date Status Refusal Reason influenza virus vaccine, inactivated 1 08/22/19 Gi kylie Hepatitis A Adult Vaccine 2 12/06/18 Given tetanus/diphtheria/pertussis, acel(Tdap) 3 07/17/13 Recorded 1Result Comment: [facility] [id number] 2Result Comment: [12/06/2018] [facility] [id number] 3Result Comment: [12/04/2017] [facility] Medications albuterol CFC free 90 [...] 05/29/18 18:23:10 EDT, Route to Pharmacy Electronically, [id number], [facility]/pharmacy #[id number] Start Date: 05/29/18 Status: Ordered [...] child, worsening over past few years. FAX [phone] [facility], 04/04/19 8:... Start Date: 04/04/19 [...]
--- OUTSIDE RECORDS SUMMARY | 2023-02-22 11:02 | XMS_ITS | Continuity of Care Document ---
Author Name Unknown Organization [facility] Jose Luis Address [address] [place] [address]- Care Team Providers Care Adjunct Communications Faculty Member Name Role Phone Denny Yu MD Primary Care Physician [place] [facility] Date(s): 01/06/21 - 05/06/21 [facility] Adult [address] [place] [address]- Attending Physician: Denny Yu MD Allergies, Adverse [...] 1Result Comment: [facility] [id number] 2Result Comment: [12/06/2018] [facility] [id number] 3Result Comment: [12/04/2017] [facility] Medications amphetamine-dextroamphetamine 10 mg oral capsule, extended release TAKE 1 CAPSULE BY MOUTH EVERY MORNING Start Date: 10/04/19 Status: Ordered baclofen 10 mg oral tablet 1, tablet, By Mouth, 3 times a day, PRN, # 15 tablet, Refills 1, Tot. Refills 0, Maintenance, NEEDED FOR MUSCLE SPASM, 04/01/21 12:29:00 EDT, Route to Pharmacy Electronically, Fwd: [id number], 165.9, cm, 06/03/20 10:24:00 EDT, Height Start [...] child, worsening over past few years. FAX [phone] [facility], 04/04/19 8:... Start Date: 04/04/19 Status: Ordered ProAir HFA 90 mcg/inh inhalation aerosol 1 puffs, Inhalation, 4 times a day, PRN NEEDED FOR WHEEZING, # 18 Unknown, 5 Refills, Maintenance, 04/01/21 12:29:00 EDT, Fwd: [id number], 25, INHALE 1 PUFF BY MOUTH 4 [...]
[2023-02-22] MEDS: Lidocaine 4 % Patch ADH..PATCH 1 PATCH TRANSDERMA (11:25)
[2023-02-22] MEDS: Ketorolac Tromethamine 30 MG/ML VIAL IM (11:26)
--- NOTE | 2023-02-22 11:30 | PC.NURSE ---
pt medicated per VELIA- lidocaine patch applied to left ribs, toradol 30mg im given 7/10 rib pain
== END 2023-02-22 12:48 | disposition home or self-care (01) ==
PROVIDERS: Emergency Provider Emergency Medicine; PCP Family Medicine
DX: S20.219A Contusion of unspecified front wall of thorax, initial encounter (principal); Y04.2XXA Assault by strike against or bumped into by another person, initial encounter; Y93.F9 Activity, other caregiving; Y92.219 Unspecified school as the place of occurrence of the external cause; Y99.0 Civilian activity done for income or pay; R07.81 Pleurodynia
CPT/HCPCS: 71101; 96372; 99283; 99284; J1885

== ENCOUNTER → 2023-03-10 09:46 | Outpatient (BNVA) | payer OTHER, SELFPAY | PROVIDERS: PCP Family Medicine; Visit Provider Internal Medicine | DX: S20.222A Contusion of left back wall of thorax, initial encounter (principal); Y04.0XXA Assault by unarmed brawl or fight, initial encounter | CPT/HCPCS: 99204 ==

== ENCOUNTER → 2023-03-17 09:46 | Outpatient (BNVA) | payer OTHER, SELFPAY | PROVIDERS: PCP Family Medicine; Visit Provider Physician Assistant | DX: S20.222D Contusion of left back wall of thorax, subsequent encounter (principal); Y04.0XXD Assault by unarmed brawl or fight, subsequent encounter | CPT/HCPCS: 99214 ==

== ENCOUNTER → 2023-03-24 10:55 | Outpatient (BNVA) | payer OTHER, SELFPAY | PROVIDERS: PCP Family Medicine; Visit Provider Physician Assistant | DX: R07.81 Pleurodynia (principal) | CPT/HCPCS: 99213 ==

== ENCOUNTER → 2023-04-07 10:14 | Outpatient (BNVA) | payer OTHER, SELFPAY | PROVIDERS: PCP Family Medicine; Visit Provider Physician Assistant | DX: S20.222D Contusion of left back wall of thorax, subsequent encounter (principal); Y04.0XXD Assault by unarmed brawl or fight, subsequent encounter | CPT/HCPCS: 99213 ==

== ENCOUNTER → 2023-04-21 08:45 | Outpatient (BNVA) | payer OTHER, SELFPAY | PROVIDERS: PCP Family Medicine; Visit Provider Physician Assistant | DX: S20.222D Contusion of left back wall of thorax, subsequent encounter (principal); Y04.0XXD Assault by unarmed brawl or fight, subsequent encounter | CPT/HCPCS: 99213 ==

== ENCOUNTER → 2023-05-03 13:29 | Outpatient (BNVA) | payer OTHER, SELFPAY | PROVIDERS: PCP Family Medicine; Visit Provider Physician Assistant | DX: S20.222D Contusion of left back wall of thorax, subsequent encounter (principal); Y04.0XXD Assault by unarmed brawl or fight, subsequent encounter | CPT/HCPCS: 99213 ==

== ENCOUNTER 2023-06-22 00:37 | Emergency (ER) | payer OTHER, SELFPAY ==
[2023-06-22 00:56] VITALS: BP 131/76; PULSE 75; RESP 14; TEMP 36.8; O2SAT 98; BMI 19.4
--- NOTE | 2023-06-22 01:14 | PC.NURSE ---
Patient with feelings like his ears are clogged for the past few weeks. Tonight he was going to clean the ear when he noted bleeding coming from the ear. Patient has toilet paper stuffed in his ear at this time.
--- NOTE | 2023-06-22 01:25 | ED.EAR ---
HPI - Ear Problem General Chief complaint: Ear Problems Stated complaint: cant hear from left ear Time Seen by Provider: 06/22/23 01:17 Source: patient Mode of arrival: ambulatory Limitations: no limitations History of Present Illness HPI Narrative: Patient has wax in left ear tried to remove with a Q-tip started bleeding. Also complaining of abscess on the left thigh for last few days no fever no chest Related Data Previous Rx's Medication Instructions Recorded acetaminophen 500 mg tablet 500 mg PO Q6H PRN fever or pain 02/22/23 (Tylenol Extra Strength) #14 tabs naproxen 500 mg tablet 500 mg PO BID PRN pain 10 days #20 02/22/23 tabs cyclobenzaprine 5 mg tablet 5 mg PO Q8H PRN pain (scale score 03/17/23 7-10) 5 days #14 tabs lidocaine 5 % topical patch 1 patch topical DAILY PRN pain #30 03/17/23 (Lidoderm) ea naproxen 500 mg tablet 500 mg PO BID #20 tabs 03/17/23 carbamide peroxide 6.5 % ear drops 5 drp otic (ear) left BID 4 days 06/22/23 (Ear Wax Drops) #15 mL cephalexin 500 mg capsule 500 mg PO QID 10 days #40 caps 06/22/23 doxycycline hyclate 100 mg tablet 100 mg PO BID #20 tabs 06/22/23 Allergies Allergy/AdvReac Type Severity Reaction Status Date / Time tramadol [TRAMADOL] Allergy Intermediate HIVES Unverified 07/30/20 19:31 shellfish derived Allergy Hives Verified 06/22/23 01:02 Review of Systems Review of Systems: Yes all other systems are reviewed and are negative [facility] Social History Social History Advance Directives: No Advance Directives Information Provided: Yes Physical Exam Vital Signs: Vital Signs: Last Vital Signs Temp 98.2 F 06/22/23 00:56 Pulse 75 06/22/23 00:56 Resp 14 06/22/23 00:56 BP 131/76 06/22/23 00:56 Pulse Ox 98 06/22/23 00:56 O2 Del Method Room Air 06/22/23 00:56 BMI result Body Mass Index 19.4 Appearance: Alert. Oriented X3. No acute distress. ENT: Pharynx normal. Oral Mucosa moist right tympanic membrane intact normal EAC, L EAC with blood likely from the use of the QTip and wax Neck: Normal inspection. Neck supple. CVS: Normal heart rate and rhythm. Pulses normal. Respiratory: No respiratory distress. Equal air entry bilateral, Abdomen: Soft and nontender. Bowel sounds are present, Skin: Skin warm and dry. Normal skin color. Normal skin turgor. Extremities: No lower extremity edema. No calf tenderness small abscess left thigh with surrounding erythema and tenderness Neuro: Oriented X 3. No motor deficit. Procedures Abscess I/D Site: lower extremity Side (if applicable): left Technique: needle aspiration Amount of fluid expressed (mL): 0.5 Sent for culture/gram staining?: No Irrigation: No Packing used?: none Medical Decision Making Medical Decision Making [facility] Narrative: Patient with wax in the left ear with irritation from the Q-tip causing the bleeding in the EAC also has an absent left thigh which was drained using needle and pus was removed discharge patient on doxycycline Keflex Discharge Plan Discharge Clinical Impression: Impacted ear wax, Abscess of left thigh Patient Disposition: Home, Self-Care Instructions: Abscess Incision and Drainage (DC) Additional Instructions: Use eardrops for wax in ear Do not use Q-tips as your bleeding from outside Antibiotic as prescribed for ear abscess on the left Prescriptions: New Ear Wax Drops 6.5 % drops 5 drp otic (ear) left BID 4 Days Qty: 15 0RF cephalexin 500 mg capsule 500 mg PO QID 10 Days Qty: 40 0RF doxycycline hyclate 100 mg tablet 100 mg PO BID Qty: 20 0RF No Action acetaminophen [Tylenol Extra Strength] 500 mg tablet 500 mg PO Q6H PRN (Reason: fever or pain) Qty: 14 0RF naproxen 500 mg tablet 500 mg PO BID PRN (Reason: pain) 10 Days Qty: 20 0RF naproxen 500 mg tablet 500 mg PO BID Qty: 20 0RF lidocaine [Lidoderm] 5 % adhesive patch,medicated 1 patch topical DAILY MDD remove after 12 hours PRN (Reason: pain) Qty: 30 0RF Rx Instructions: leave on most painful area for up to 12 hrs cyclobenzaprine 5 mg tablet 5 mg PO Q8H PRN (Reason: pain (scale score 7-10)) 5 Days Qty: 14 0RF
[2023-06-22] MEDS: Doxycycline Monohydrate 100 MG CAPSULE PO (02:01)
[2023-06-22] MEDS: cephALEXin 500 MG CAPSULE PO (02:01)
[2023-06-22 02:45] VITALS: BP 136/88; PULSE 60; RESP 16; O2SAT 98
== END 2023-06-22 02:48 | disposition home or self-care (01) ==
PROVIDERS: Emergency Provider Internal Medicine
DX: L02.416 Cutaneous abscess of left lower limb (principal); H61.22 Impacted cerumen, left ear; Z79.899 Other long term (current) drug therapy
CPT/HCPCS: 10060; 99283; 99284

== ENCOUNTER 2024-08-29 13:38 | Emergency (ER) | payer OTHER, SELFPAY ==
--- NOTE | ~2024-08-29 | CT_ITS ---
EXAMINATION: CT ABDOMEN AND PELVIS WITH CONTRAST CLINICAL INFORMATION: Epigastric pain COMPARISON: None available. TECHNIQUE: Multidetector volumetric images were obtained from the superior aspect of the liver through the pubic symphysis following administration 85 mL of Omnipaque 350 intravenous contrast. Sagittal and coronal reformatted images were obtained on the technologist's workstation. Oral contrast: No This CT examination was performed using dose optimization techniques as appropriate, variously including the following: *Automated exposure control *Adjustment of mA and/or kV according to patient size (this includes techniques or standardized protocols for targeted exams where dose is matched to indication/reason for exam; i.e. extremities or head) *Use of iterative reconstruction technique DLP: 268 mGy-cm FINDINGS: LUNG BASES: The visualized lung bases are unremarkable. LIVER, GALLBLADDER, AND BILIARY TREE: The liver is normal in size, shape, and attenuation. No focal hepatic lesion or biliary ductal dilatation is present. The gallbladder is unremarkable with no evidence of radiopaque gallstones, gallbladder wall thickening, or obvious pericholecystic inflammatory changes. PANCREAS: Unremarkable. SPLEEN: Unremarkable. ADRENAL GLANDS: Unremarkable. KIDNEYS AND URETERS: The kidneys are normal in size, shape, and attenuation. No hydronephrosis, hydroureter, or calculi seen. No perinephric stranding. BLADDER: Unremarkable. GASTROINTESTINAL TRACT: The small and large bowel are unremarkable. The appendix is not visualized. No inflammatory changes in the right lower quadrant. There is mild wall thickening of the descending colon. ABDOMINAL WALL: No significant hernia is appreciated. LYMPH NODES: Normal. VASCULAR: Unremarkable. PELVIC VISCERA: Unremarkable. OSSEOUS STRUCTURES: Unremarkable. CT/CT abdomen pelvis w IV con IMPRESSION: Mild wall thickening of the descending colon may be due to underdistention or mild colitis. Fleischner guidelines were followed. Electronically signed by: Janice Arechiga MD 08/29/2024 09:28 PM EDT
--- NOTE | 2024-08-29 14:32 | ED_ITS ---
HPI - GI Bleed General Chief complaint: GI Bleed Stated complaint: ulcer Time Seen by Provider: 08/29/24 17:18 Source: patient Mode of arrival: ambulatory Limitations: no limitations History of Present Illness ED Provider: Ian Martínez PA-C HPI Narrative: 34 yold male with no pmh presents to the ED for abdominal pain for the past 3 days and than today he states dark watery stools and 3 episodes of bright red blood cells. Patient states taking Motrin since last week for jaw pain. Patient denies any history of alcohol abuse any recent trauma to the abdomen. Related Data Previous Rx's ?Medication ?Instructions ?Recorded acetaminophen 500 mg tablet 500 mg PO Q6H PRN fever or pain 02/22/23 (Tylenol Extra Strength) #14 tabs naproxen 500 mg tablet 500 mg PO BID PRN pain 10 days #20 02/22/23 tabs cyclobenzaprine 5 mg tablet 5 mg PO Q8H PRN pain (scale score 03/17/23 7-10) 5 days #14 tabs lidocaine 5 % topical patch 1 patch topical DAILY PRN pain #30 03/17/23 (Lidoderm) ea naproxen 500 mg tablet 500 mg PO BID #20 tabs 03/17/23 carbamide peroxide 6.5 % ear drops 5 drp otic (ear) left BID 4 days 06/22/23 (Ear Wax Drops) #15 mL cephalexin 500 mg capsule 500 mg PO QID 10 days #40 caps 06/22/23 doxycycline hyclate 100 mg tablet 100 mg PO BID #20 tabs 06/22/23 azithromycin 500 mg tablet See Rx Instructions PO .COMPLEX #3 08/29/24 tabs famotidine 40 mg tablet (Pepcid) 40 mg PO BID 7 days #14 tabs 08/29/24 Allergies Allergy/AdvReac Type Severity Reaction Status Date / Time tramadol [TRAMADOL] Allergy Intermediate HIVES Verified 08/29/24 14:38 shellfish derived Allergy Hives Verified 08/29/24 14:38 Review of Systems 2 Review of Systems: Abdominal pain, vomiting blood, black stool Yes all other systems are reviewed and are negative PMFSH Social History Social History Alcohol intake: never Smoked in Last 30 Days: No Use of substances other than those prescribed or required for medical reasons: No Advance Directives: No Advance Directives Information Provided: No Do you have a plan to hurt others: No Plan Physical Exam 2 Vital Signs: Vital Signs: Last Vital Signs Temp 97.2 F 08/29/24 22:11 Pulse 59 08/29/24 22:11 Resp 16 08/29/24 22:11 BP 151/85 H 08/29/24 22:11 Pulse Ox 98 08/29/24 22:11 O2 Del Method Room Air 08/29/24 22:11 BMI result Body Mass Index 20.2 Const: General: cooperative, healthy appearing, comfortable, no acute distress, well developed, alert, awake and Physically active O rientation/consciousness: patient oriented x3 HEENT: Head: Yes normal to inspection, Yes No palpable skull fracture present, Yes normocephalic and Yes atraumatic Eyes: General: appearance normal, both eyes and all related structures Neck: Neck: Yes normal visual inspection, Yes full ROM, Yes no lymphadenopathy, Yes no meningeal signs, Yes trachea midline, Yes supple, No anterior neck swelling and No tender Chest: Chest palpation & inspection: normal inspection of the chest and normal palpation of entire chest wall Resp: Effort & Inspection: normal respiratory effort and able to speak in complete sentences Auscultation: clear to auscultation bilaterally Cardio: Jugular venous distension: no JVD Heart sounds: S1 normal heart sound present and S2 normal heart sound present GI: Inspection: Yes normal to inspection Palpation (GI): Soft to palpation, not firm, Tenderness to palpation present (GI) in the epigastrum, no guarding and not rigid : Other: rectal exam negative for zenia blood, melena, or black stool General: No CVA tenderness and Yes no CVA tenderness Back/Spine/Pelvis: Back: no CVA tenderness, No CVA tenderness and No back tenderness Skin: General skin exam: no rashes or lesions noted, elasticity normal and turgor normal Neuro: General: patient oriented x3, gait normal, tone normal, moves all extremities, Normal light touch and pain sensation, no meningeal signs, no focal motor deficits, CN's II-XI intact bilaterally and normal sensation to monofilament Extrem: General: Yes normal to inspection, Yes full ROM and Yes capillary refill normal Psych: Appearance: grossly normal, well kempt and not disheveled Course Course Course Narrative: This is a Rapid Medical Examination (RME) performed by Caesar Arnold PA-C in triage. Full HPI, ROS, assessment and treatment plan per primary provider in the Main ED. 34 yo male with no medical problems presents to the ER for evaluation of bloody vomiting x3 today. 1st episode was dark coffee grounds and then became bright red. last time was 930am. reports taking excessive amounts of ibuprofen for 2 days. reports 9/10 abdominal pain that preceded the vomiting. 3 episodes of black diarrhea as well. no history of GIB in the past. VSS in triage, not tachycardic. Plan: lab workup Medications Administered Discontinued Medications Generic Name Dose Route Start Last Admin Trade Name Freq PRN Reason Stop Dose Admin Al Hydroxide/Mg Hydroxide 30 ml 08/29/24 17:30 08/29/24 17:53 Magnesium Hydrox/Alum Hydrox 30 Ml Oral.Susp PO 08/29/24 17:31 30 ml ONCE ONE Administration Iohexol 85 ml 08/29/24 19:15 08/29/24 19:16 Iohexol 350 Mg/Ml 100 Ml Infus..Btl IV 08/29/24 19:16 85 ml ONCE ONE Administration Lidocaine HCl 15 ml 08/29/24 17:30 08/29/24 17:53 Lidocaine Hcl Viscous 2 % 15 Ml Solution MUCOUS MEM 08/29/24 17:31 15 ml ONCE ONE Administration Ondansetron HCl 4 mg 08/29/24 16:50 08/29/24 17:53 Ondansetron Hcl 4 Mg/2 Ml Vial IVPUSH 08/29/24 16:51 4 mg ONCE ONE Administration Pantoprazole Sodium 40 mg 08/29/24 16:50 08/29/24 17:53 Pantoprazole Sodium 40 Mg/10 Ml Vial IVPUSH 08/29/24 16:51 40 mg ONCE ONE Administration Medical Decision Making Medical Decision Making MDM Narrative: 34-year-old male presents ED for vomiting blood and dark stool. Rectal exam negative for black stool, bright red blood, or melena. Mild epigastric tenderness. Initial hemoglobin hematocrit stable. Patient has not vomiting since 09:30am. 9:31pm. Stool gauic is negative. Abdominal CT scan pending check for perforation. Patient's vital signs are stable. Hemoglobin hematocrit stable. 9:45pm: Patient is abdomen is benign and no longer has pain. CT scan shows possible colitis and is negative for perforation. Will treat with azithromycin. NOt supecting GI Bleed. Hemoglobin/Hematocrit is stable. Rectal exam negative zenia blood, melena, or black stool. Vital signs are stable. Patient explained worrisome signs and informed to return to the ED immeidatley. Differential Diagnosis Differential Diagnoses: The differential diagnosis associated with the presentation includes (Gi bleed, GERD, colitits, gastroentieritis) Admission/Observation Consideration of admission/observation: Escalation of care including admission/observation considered Lab Data MDM Lab Attestation statement: I reviewed the patient's lab results. 08/29/24 15:04 08/29/24 15:04 Labs: Lab Results 08/29/24 08/29/24 08/29/24 Range/Units 15:04 17:16 17:52 WBC 11.0 H (4.8-10.8) X10*3/uL RBC 4.78 (4.60-5.80) X10*6/uL Hgb 13.7 L (14.0-18.0) g/dl Hct 41.3 L (42.0-52.0) % MCV 86.4 (80.0-98.0) fL MCH 28.7 (27.0-33.0) pg MCHC 33.2 (31.0-36.0) g/dl RDW 13.9 (11.0-16.0) % Plt Count 256 (160-400) X10*3/uL MPV 8.5 L (9.4-12.4) fL Immature Gran % (Auto) 0.3 (0.0-0.4) % Neut % (Auto) 66.7 (45-73) % Lymph % (Auto) 21.9 (20-40) % [place] % (Auto) 10.3 (2-11) % Eos % (Auto) 0.3 (0-4) % Baso % (Auto) 0.5 (0-2) % Lymph # (Auto) 2.4 (1.2-4.9) X10*3/uL [place] # (Auto) 1.1 (0.1-1.2) X10*3/uL Eos # (Auto) 0.0 (0.0-0.4) X10*3/uL Baso # (Auto) 0.1 (0.0-0.2) X10*3/uL Abs Immat Gran (auto) 0.03 (0.00-0.03) X10*3/uL Absolute Neuts (auto) 7.4 (2.0-8.3) x10*3/uL Absolute Nucleated RBC 0.000 (0.0-0.012) X10*3/uL Nucleated RBC % (auto) 0.0 (0.0-0.2) /100WBC Sodium 142 (135-145) mmol/L Potassium 3.8 (3.3-5.1) mmol/L Chloride 107 (96-108) mmol/L Carbon Dioxide 28 (22-29) mmol/L Anion Gap 11 L (12-20) BUN 8 L (9-16) mg/dL Creatinine 1.02 (0.5-1.4) mg/dL Estim Creat Clear Calc 81.8 Estimated GFR > 60 Random Glucose 83 (60-115) mg/dL Calcium 10.2 (8.4-10.2) mg/dL Magnesium 2.4 (1.6-2.6) mg/dL Total Bilirubin 0.7 (0.0-1.0) mg/dL Direct Bilirubin 0.3 (0.0-0.5) mg/dL AST 15 (5-37) U/L ALT 11 (0-40) U/L Alkaline Phosphatase 73 (39-117) U/L Total Protein 7.3 (6.5-8.0) g/dL Albumin 4.4 (3.5-5.0) g/dL Lipase 13 (8-78) U/L Urine Color Yellow Urine Appearance Clear Urine pH 5.0 (5.0-9.0) Ur Specific [place] 1.015 (1.005-1.025) Urine Protein Negative (Neg-Trace) mg/dL Urine Glucose (UA) Negative (Negative) mg/dL Urine Ketones Trace (Negative) mg/dL Urine Blood Negative (Negative) Urine Nitrite Negative (Negative) Ur Leukocyte Esterase Negative (Negative) Stool Occult Blood NEGATIVE (NEGATIVE) Blood Type O Positive Antibody Screen NEGATIVE Independent Interpretation I performed an independent interpretation of an: CT Scan Radiology Impression Discussion of test interpretation with radiology: I have reviewed the radiologist's reading. Independent Historian Clinical information obtained from an independent historian. History obtained from or confirmed by: Other (Patient) External Record Review External record reviewed: Other (prior visits) Prescription Management I considered prescription management with: Antibiotic (azithromycin) and Other (pepcid) Discharge Plan Discharge Clinical Impression: GERD (gastroesophageal reflux disease), Colitis Patient Disposition: Home, Self-Care Instructions: Gastroesophageal Reflux Disease (ED), Colitis (ED) Additional Instructions: Recommend follow-up with banquet steward and primary care provider. Return to the ED for any black stools, rectal bleeding, vomiting blood, nausea, vomiting, weakness, pale skin, any other concerning symptoms. CT/CT abdomen pelvis w IV con IMPRESSION: Mild wall thickening of the descending colon may be due to underdistention or mild colitis. Fleischner guidelines were followed. Electronically signed by: Janice Arechiga MD 08/29/2024 09:28 PM EDT RP Prescriptions: New famotidine [Pepcid] 40 mg tablet 40 mg PO BID 7 Days Qty: 14 0RF azithromycin 500 mg tablet See Rx Instructions .ROUTE .COMPLEX Qty: 3 0RF Rx Instructions: For 500 mg dose pack: take 500 mg once daily for 3 days No Action acetaminophen [Tylenol Extra Strength] 500 mg tablet 500 mg PO Q6H PRN (Reason: fever or pain) Qty: 14 0RF naproxen 500 mg tablet 500 mg PO BID PRN (Reason: pain) 10 Days Qty: 20 0RF Ear Wax Drops 6.5 % drops 5 drp otic (ear) left BID 4 Days Qty: 15 0RF cephalexin 500 mg capsule 500 mg PO QID 10 Days Qty: 40 0RF doxycycline hyclate 100 mg tablet 100 mg PO BID Qty: 20 0RF naproxen 500 mg tablet 500 mg PO BID Qty: 20 0RF lidocaine [Lidoderm] 5 % adhesive patch,medicated 1 patch topical DAILY MDD remove after 12 hours PRN (Reason: pain) Qty: 30 0RF Rx Instructions: leave on most painful area for up to 12 hrs cyclobenzaprine 5 mg tablet 5 mg PO Q8H PRN (Reason: pain (scale score 7-10)) 5 Days Qty: 14 0RF Referrals: [facility] G[facility] Services [Provider Group] (GERD. May need endoscopic) Stand Alone Forms: Work/School Release Interventions: ED Discharge Assessment Last Done: 08/29/24 22:11 Discharge Date/Time: 08/29/24 22:12 Print Language: Beninese
[2024-08-29 14:35] VITALS: BP 153/92; PULSE 64; RESP 16; TEMP 37.1; O2SAT 100; BMI 20.2
[2024-08-29 15:09] LABS: MANUAL DIFF FLAG NO
[2024-08-29 15:12] LABS: Basophils Absolute Auto 0.1 X10*3/uL (0.0-0.2); Basophils Percent Auto 0.5 % (0-2); Eosinophils Percent Auto 0.3 % (0-4); Hematocrit 41.3 % (42.0-52.0); Hemoglobin 13.7 g/dl (14.0-18.0); Imm Gran Abs Auto 0.03 X10*3/uL (0.00-0.03); Imm Gran Pct Auto 0.3 % (0.0-0.4); Lymphocytes Absolute Auto 2.4 X10*3/uL (1.2-4.9); Lymphocytes Percent Auto 21.9 % (20-40); Mean Corpuscular HGB Conc 33.2 g/dl (31.0-36.0); Mean Corpuscular Hemoglobin 28.7 pg (27.0-33.0); Mean Corpuscular Volume 86.4 fL (80.0-98.0); Mean Platelet Volume 8.5 fL (9.4-12.4); Monocytes Absolute Auto 1.1 X10*3/uL (0.1-1.2); Monocytes Percent Auto 10.3 % (2-11); Neutrophils Absolute Auto 7.4 x10*3/uL (2.0-8.3); Neutrophils Percent Auto 66.7 % (45-73); Platelet Count 256 X10*3/uL (160-400); Red Blood Count 4.78 X10*6/uL (4.60-5.80); Red Cell Distribution Width 13.9 % (11.0-16.0)
[2024-08-29 15:33] LABS: Alanine Aminotransferase 11 U/L (0-40); Albumin Level 4.4 g/dL (3.5-5.0); Alkaline Phosphatase 73 U/L (39-117); Anion Gap 11 (12-20); Aspartate Amino Transferase 15 U/L (5-37); Bilirubin Direct 0.3 mg/dL (0.0-0.5); Bilirubin Total 0.7 mg/dL (0.0-1.0); Blood Urea Nitrogen 8 mg/dL (9-16); Calcium 10.2 mg/dL (8.4-10.2); Carbon Dioxide 28 mmol/L (22-29); Chloride 107 mmol/L (96-108); Creatinine Clr Calc Pharmacy 81.8; Estimated Glomerular Filt Rate > 60; Glucose Random 83 mg/dL (60-115); Lipase 13 U/L (8-78); Magnesium 2.4 mg/dL (1.6-2.6); Potassium 3.8 mmol/L (3.3-5.1); Sodium 142 mmol/L (135-145); Total Protein 7.3 g/dL (6.5-8.0)
[2024-08-29 17:11] VITALS: BP 156/87; PULSE 66; RESP 15; TEMP 37.4; O2SAT 100
[2024-08-29 17:22] LABS: Appearance Urine Clear; Color Urine Yellow; Glucose Urine UA Negative (Negative); Leukocyte Esterase Urine Negative (Negative); Nitrite Urine Negative (Negative); Specific Gravity - Urine 1.015 (1.005-1.025); Urine Blood Negative (Negative); Urine Ketones Trace mg/dL (Negative); Urine Protein Negative (Neg-Trace)
[2024-08-29] MEDS: Pantoprazole Sodium 40 MG/10 ML VIAL IVPUSH (17:53)
[2024-08-29] MEDS: ondansetron HCL 4 MG/2 ML VIAL IVPUSH (17:53)
[2024-08-29] MEDS: Magnesium Hydrox/Alum Hydrox 30 ML ORAL.SUSP PO (17:53)
[2024-08-29] MEDS: Lidocaine HCl Viscous 2 % 15 ML SOLUTION MUCOUS MEM (17:53)
[2024-08-29 18:00] VITALS: BP 151/91; PULSE 60; RESP 11; TEMP 36.8
[2024-08-29 18:00] LABS: OBS Int Ctl Valid YES; OBS1 NEGATIVE (NEGATIVE)
[2024-08-29] MEDS: iohexoL 350 MG/ML 100 ML INFUS..BTL 85 ML IV (19:16)
--- NOTE | 2024-08-29 20:17 | PC.NURSE ---
Patient continues to have 10/10 R tooth pain, Ian CHAN made aware, patient given lidocaine lollipop to help w/ pain by Ian. Suggested to patient to call dentist again in the AM to try and get an earlier appointment. Plan to recheck labs / awaiting CT results in place.
[2024-08-29 20:19] VITALS: BP 161/97; PULSE 59; RESP 11; TEMP 36.7; O2SAT 98
[2024-08-29 21:56] VITALS: BP 151/85; PULSE 59; RESP 16; TEMP 36.2; O2SAT 98
[2024-08-29 22:11] VITALS: BP 151/85; PULSE 59; RESP 16; TEMP 36.2; O2SAT 98
== END 2024-08-29 22:12 | disposition home or self-care (01) ==
PROVIDERS: Physician Assistant; Emergency Provider Internal Medicine; PCP Family Medicine
DX: K21.9 Gastro-esophageal reflux disease without esophagitis (principal); K52.9 Noninfective gastroenteritis and colitis, unspecified; Z79.899 Other long term (current) drug therapy
CPT/HCPCS: 36415; 74177; 80048; 80076; 81003; 82272; 83690; 83735; 85025; 86850; 86900; 86901; 96374; 96375; 99284; J2405; J2470; Q9967